=== PATIENT | female | born 2000 | race Caucasian/White ===

== ENCOUNTER 2018-09-07 02:28 | Emergency (ER) | payer OTHER ==
[2018-09-07] MEDS ORDERED: NS 1,000 ML IV ONE (02:32)
--- NOTE | 2018-09-07 02:35 | EDPHY ---
H & P Stated Complaint: AMS Time Seen by Provider: 09/07/18 02:29 HPI/ROS: HPI The patient presents with an episode of ALOC which occurred just prior to arrival witnessed by her roommates. She is brought in by ambulance. She was at a concert [employer] and did have several alcoholic drinks. She returned home and used marijuana. She then does not recall what happened. Roommates report that she shook and lost consciousness. Afterwards she was awake and alert. Now she feels well without any complaints. Paramedics report she was in a sinus tachycardia with a rate of about 150 upon presentation with normal blood pressure.. REVIEW OF SYSTEMS 10 systems were reviewed and negative with the exception of the elements mentioned in the history of present illness. PMHx: Healthy Soc Hx: College student, uses alcohol and marijuana FHx: PHYSICAL General Appearance: Alert, no distress Eyes: Pupils equal and round no pallor or injection ENT, Mouth: Mucous membranes moist Respiratory: There are no retractions, lungs are clear to auscultation Cardiovascular: Tachycardic rate and regular rhythm Gastrointestinal: Abdomen is soft and non-tender, no masses, bowel sounds normal Neurological: A&O, moves all extremities Skin: Warm and dry, no rashes Musculoskeletal: Neck is supple non tender Extremities: symmetrical, full range of motion Psychiatric: Patient is oriented X 3, there is no agitation Source: Patient, EMS Exam Limitations: Intoxication Constitutional: Initial Vital Signs Temperature (C) 37.3 C 09/07/18 02:30 Heart Rate 127 H 09/07/18 02:30 Respiratory Rate 16 09/07/18 02:30 Blood Pressure 129/62 H 09/07/18 02:30 O2 Sat (%) 97 09/07/18 02:30 O2 Delivery Mode Room Air Allergies/Adverse Reactions: No Known Allergies Allergy (Unverified 09/07/18 02:36) Home Medications: Medication Instructions Recorded Control 09/07/18 Medical Decision Making - Diagnostics EKG Interpretation: EKG: Complete interpretation has been separately recorded in the [facility] archive. Summary impression: Sinus tachycardia with rate of 124 Differential Diagnosis: 17-year-old female with no significant past medical history presents brought in by ambulance with an episode ALOC witnessed by her roommates just prior to arrival in the setting of alcohol and marijuana use while strobe lights were going off. I suspect seizure, though would also consider vasovagal syncope, arrhythmia. The patient was monitored for several hours with no ongoing seizure activity. She was completely asymptomatic and felt well. Her labs were checked and did reveal leukocytosis with left shift. Patient does not have any signs of infection such as fever, meningismus. She did have an anion gap which I suspect is a lactic acidosis related to her seizure. Her sister came from [place] where she is from. I advised her that she should not drive until she is further evaluated. I will refer her to Neurology. She does have a PMD in [place] whom she can follow up with. - Data Points Laboratory Results: Laboratory Results 09/07/18 02:35 09/07/18 02:35 09/07/18 09/07/18 09/07/18 02:35 02:35 02:35 WBC 17.83 10^3/uL H 10^3/uL (3.80-9.50) RBC 4.86 10^6/uL 10^6/uL (4.18-5.33) Hgb 14.9 g/dL g/dL (12.6-16.3) Hct 45.4 % % (38.0-47.0) MCV 93.4 fL fL (81.5-99.8) MCH 30.7 pg pg (27.9-34.1) MCHC 32.8 g/dL g/dL (32.4-36.7) RDW 14.0 % % (11.5-15.2) Plt Count 442 10^3/uL H 10^3/uL (150-400) MPV 9.1 fL fL (8.7-11.7) Neut % (Auto) 84.4 % H % (39.3-74.2) Lymph % (Auto) 10.9 % L % (15.0-45.0) Frontier % (Auto) 3.7 % L % (4.5-13.0) Eos % (Auto) 0.1 % L % (0.6-7.6) Baso % (Auto) 0.3 % % (0.3-1.7) Nucleat RBC Rel Count 0.0 % % (0.0-0.2) Absolute Neuts (auto) 15.05 10^3/uL H 10^3/uL (1.70-6.50) Absolute Lymphs (auto) 1.94 10^3/uL 10^3/uL (1.00-3.00) Absolute Monos (auto) 0.66 10^3/uL 10^3/uL (0.30-0.80) Absolute Eos (auto) 0.01 10^3/uL L 10^3/uL (0.03-0.40) Absolute Basos (auto) 0.06 10^3/uL 10^3/uL (0.02-0.10) Absolute Nucleated RBC 0.00 10^3/uL 10^3/uL (0-0.01) Immature Gran % 0.6 % % (0.0-1.1) Immature Gran # 0.11 10^3/uL H 10^3/uL (0.00-0.10) Sodium 143 mEq/L mEq/L (135-145) Potassium 4.3 mEq/L mEq/L (3.3-5.0) Chloride 106 mEq/L mEq/L (97-110) Carbon Dioxide 13 mEq/l L mEq/l (22-31) Anion Gap 24 mEq/L H mEq/L (6-14) BUN 12 mg/dL mg/dL (7-23) Creatinine 1.0 mg/dL mg/dL (0.6-1.0) Estimated GFR > 60 Glucose 143 mg/dL H mg/dL (70-100) Calcium 10.6 mg/dL H mg/dL (8.5-10.4) Beta HCG, Qual NEGATIVE Ethyl Alcohol < 10 mg/dL mg/dL (0-10) Medications Given: Discontinued Medications Sodium Chloride (Ns) 1,000 mls @ 0 mls/hr IV EDNOW ONE; Wide Open PRN Reason: Protocol Stop: 09/07/18 02:33 Last Admin: 09/07/18 02:49 Dose: 1,000 mls Departure - Departure Disposition: Home, Routine, Self-Care Clinical Impression: Seizure Condition: Good Instructions: New-Onset Seizure in Adults (ED) Additional Instructions: You cannot drive for the next several months until your cleared by the neurologist or your primary care doctor. If you have another seizure, you should return to the emergency department. Please make sure to get plenty of rest and drink plenty of fluids tomorrow. You should avoid using drugs and alcohol. Referrals: Luis Flores DO [Medical Doctor] - As per Instructions Geoffrey Curtis MD [Medical Doctor] - As per Instructions
[2018-09-07 02:45] LABS: PLATELET COUNT 442 10^3/uL (150-400)
[2018-09-07 04:45] VITALS: BP 116/66
--- NOTE | 2018-09-09 03:26 | CPEKG ---
Test Reason : OPEN Blood Pressure : / mmHG Vent. Rate : 124 BPM Atrial Rate : 124 BPM P-R Int : 134 ms QRS Dur : 074 ms QT Int : 330 ms P-R-T Axes : 076 087 006 degrees QTc Int : 474 ms Sinus tachycardia Borderline T abnormalities, inferior leads Confirmed by Jeri Stephens ([id number]) on 09/09/2018 3:25:32 AM Referred By: Confirmed By:Jeri Stephens
== END 2018-09-07 04:46 | disposition home or self-care (01) ==
DX: R56.9 Unspecified convulsions (principal); E86.9 Volume depletion, unspecified
CPT/HCPCS: G0480